=== PATIENT | female | born 1955 | race Caucasian/White ===

== ENCOUNTER 2017-10-23 13:10 | Inpatient (IN) ==
[2017-10-23] MEDS ORDERED: methylPREDNISolone 125 MG/2 ML VIAL IVP ONE (13:33)
[2017-10-23] MEDS ORDERED: Ipratropium/Albuterol Neb 3 ML IH ONE ×4 (13:33→15:53)
[2017-10-23 13:59] LABS: Basophils # 0.1 K/mcL (0.0-0.2); Basophils % 0.4 %; Eosinophils # 0.3 K/mcL (0.0-0.6); Eosinophils % 2.3 %; Hemoglobin 12.8 g/dL (11.5-15.4); Immature Granulocytes % 0.4 % (0-4); Lymphocytes % 27.3 %; Mean Corpuscular HGB Conc 31.2 g/dL (31.6-35.5); Mean Corpuscular Hemoglobin 26.4 pg (28.0-33.3); Mean Corpuscular Volume 84.7 fL (83.0-100.0); Mean Platelet Volume 9.3 fL (9.4-12.4); Monocytes % 5.6 %; Neutrophils # 7.4 K/mcL (1.6-8.9); Platelet Count 279 K/mcL (140-400); Red Blood Count 4.84 M/mcL (3.82-4.97); Red Cell Distribution Width 16.6 % (11.5-14.5)
--- NOTE | 2017-10-23 14:03 | Emergency Department Note ---
Disposition Clinical Impression: Acute exacerbation of chronic obstructive airways disease, Hypercapnia Disposition: Admitted As Inpatient Referrals: Rosangela Rob COOLER SERVICE SUPERVISOR [Primary Care Provider] - Forms: ED Satisfaction Letter Time of Disposition: 16:40 SOB HPI - General Chief Complaint: ED Shortness of Breath/Dyspnea Stated Complaint: short of breath Time Seen by Provider: 10/23/17 13:19 Source: patient, family Mode of arrival: EMS Limitations: no limitations Nursing Notes Reviewed: Yes Vital Signs Reviewed: Yes - History of Present Illness Patient reports shortness of breath over the last several days. She reports Saturday she went to physical therapy where she has been going for orthopedic issues. She thinks that she might of caught something. she went back again and "everybody there was sick" she came home that evening and began to get increasingly congested. Her got congestion. She reports she has had onset of clear rhinorrhea, sore throat, pain across her chest which is rather intense from all of the coughing and she became more short of breath. Coughing has been constant and productive of only white sputum. She reports no fevers or chilling. She takes no prednisone at home currently but just finished a course last Saturday. She is not on oxygen at home but does have breathing treatments and took 2 this morning. Patient reports that she is dyspneic with any attempt at movement or any exertion. Wheezing does not seem to be getting better with the nebulizer Past medical history lung issues COPD but she has never been hospitalized solely for her breathing Pt Subjective Complaint: shortness of breath, cough Onset (ago): day(s) Context: recent illness Severity: moderate Consistency/Duration: constant Improves with: nothing, bronchodilators Worsens with: exertion Known history of: COPD Associated symptoms: Reports: chest pain (Associated with cough), wheezing. Denies: pain with inspiration, fever, sputum production, orthopnea, lower extremity pain, polyuria, parasthesias, palpitations, hemoptysis, nausea/ vomiting Treatment prior to arrival: bronchodilator Cough present: Yes Cough Description: Voluntary, Strong, Wheezy Cough Frequency: Continuous Sputum production: Yes Sputum Amount: Small Sputum Color: White - Related Data Home Medications Medication Instructions Recorded Confirmed Aspirin [Adult Low Dose Aspirin EC] 81 mg PO DAILY 08/24/15 07/15/17 Furosemide [Lasix] 40 mg PO DAILY 08/24/15 07/15/17 Gabapentin [Neurontin] 600 mg PO TID 08/24/15 07/15/17 Levothyroxine [Synthroid] 50 mcg PO DAILY 08/24/15 07/15/17 Potassium Chloride 20 meq PO BID 08/24/15 07/15/17 Trazodone HCl [TraZODone] 100 mg PO HS 08/24/15 07/15/17 glipiZIDE [Glucotrol] 10 mg PO BID 08/24/15 07/15/17 Insulin Glargine,Hum.rec.anlog 50 units SQ HS 03/15/16 07/15/17 [Tounavneet Solostar] Levalbuterol Neb [Xopenex Neb] 0.63 mg IH TID 03/15/16 07/15/17 hydrOXYzine HCl [Hydroxyzine HCl] 25 mg PO TID 03/15/16 07/15/17 Ipratropium [ATROVENT Inhaler] 2 puff IH Q6HR 05/01/16 07/15/17 clonazePAM [Klonopin] 1 mg PO QID 05/01/16 07/15/17 Lisinopril [Zestril] 5 mg PO DAILY 06/13/16 07/15/17 Zolpidem [Ambien] 5 mg PO HS 06/13/16 07/15/17 Albuterol Sulfate [Ventolin Hfa] 108 mcg IH Q4H 07/11/16 07/15/17 Albuterol Sulfate 3 ml IH TID 07/13/17 07/15/17 Ammonium Lactate [Amlactin] 1 each TP BID 07/13/17 07/15/17 Magnesium Oxide [Mgo] 400 mg PO DAILY 07/13/17 07/15/17 Tramadol HCl [Ultram] 50 mg PO Q12HR PRN 07/13/17 07/15/17 Metoprolol Succinate [Toprol Xl] 25 mg PO DAILY 07/15/17 07/15/17 Venlafaxine [Effexor] 75 mg PO BID 07/15/17 07/15/17 Previous Rx's Medication Instructions Recorded Rivaroxaban [Xarelto] 20 mg PO Q24H #30 tablet 06/05/17 Docusate [Colace] 100 mg PO BID #30 capsule 07/17/17 HYDROcodone/Acet 10/325 mg [[place] 1 tab PO Q6HR PRN 7 Days #28 tablet 07/17/17 10-325 mg] Polyethylene Glycol 3350 [MiraLAX] 17 gm PO DAILY #30 powd.pack 07/17/17 levoFLOXacin [Levaquin] 500 mg PO DAILY #12 tablet 07/17/17 predniSONE [PredniSONE] 10 mg PO DAILY #11 tablet 08/19/17 Betamethasone Dipropionate 15 gm TP BID #1 cream..g. 09/23/17 Allergies Allergy/AdvReac Type Severity Reaction Status Date / Time ceftriaxone [From Rocephin] Allergy Rash Verified 07/08/17 19:18 Penicillins Allergy Rash Verified 07/08/17 19:18 pregabalin [From Lyrica] Allergy Hives Verified 07/08/17 19:18 rifampin Allergy Rash Verified 07/08/17 19:18 sulfamethoxazole Allergy Hives Verified 07/08/17 19:18 [From Bactrim] trimethoprim [From Bactrim] Allergy Hives Verified 07/08/17 19:18 doxycycline AdvReac Diarrhea Verified 07/15/17 11:36 Oxycodone [From Percocet] AdvReac Fainting Verified 07/15/17 11:36 All systems ED: reviewed and negative except as stated. Review of Systems: As Per HPI Past Medical History - Past Medical History Medical history: Reports: arthritis, COPD, diabetes, GERD, hypertension, RA, thyroid disease, other Surgical history: Reports: cataract, cholecystectomy, herniorrhaphy, hip replacement, hysterectomy, knee replacement, orthopedic, other, other Psychiatric history: Reports: anxiety, depression SCHOOL PSYCHOLOGY PROFESSOR history: Reports: no SCHOOL PSYCHOLOGY PROFESSOR history - Social History Smoking Status: Current every day smoker Smokeless Tobacco Status: No Alcohol use: Reports: none Drug use: Reports: none Physical Exam Constitutional: Patient is oriented to person, place, and time. Skin color is pink. Appears well hydrated, body habitus normal . Appears acutely dyspneic and tachypnea. She is able to provide her own history but has to stop in between words because she is short of breath Head: Normocephalic and atraumatic. External ear exam normal Nose: Nose normal. Mouth/Throat: Uvula is midline, oropharynx is clear and moist and mucous membranes are normal. Eyes: Conjunctivae nl, extraocular motions and lids are normal. Pupils are equal , round, and reactive to light. Neck: Normal range of motion and phonation normal. Neck supple. Cardiovascular: Normal rate, regular rhythm, normal heart sounds. Pulmonary/Chest: Mild Respiratory distress. Respiratory Effort increased. Wheezing throughout all lung singer. Coarse rhonchi bilaterally.. Abdominal: Soft. Normal appearance and bowel sounds are normal. no tenderness, no masses, no guarding, no rebound Musculoskeletal: Good distal pulses. Soft compartments. Brisk cap refill. Extremities: Normal range of motion.Intact peripheral pulses. No Edema. Extremity skin color nl, no calf tenderness or palpable cords. Neurological: Patient is alert and oriented without evidence of obvious motor deficits Skin: Skin is warm, dry and intact. color is normal, cap refill is quick Psychiatric: Patient has depressed mood and affect. Patient speech is normal and behavior is normal. Thought content normal. - General General appearance: alert Course - Reevaluation(s) Reevaluation #1: Patient has improved only slightly. She states that she feels much better and she wants to go home. After 2 breathing treatments she continued to have wheezing and rhonchi in all lung singer. She did not have a fever. She has no pneumonia. I took her off her oxygen since she is not on any oxygen at home and she dropped 87% on room air. Patient was initially unwilling to stay in the emergency Department any longer or be admitted to the hospital which I suggested because of her elevated CO2 level on the venous blood gas as well as persistent bronchospasm and hypoxia even at rest. Patient was initially unwilling but then after conversation with her she agreed to stay as long as she could stay here at this facility. I had Dr. Resendez or whoever is on-call for his group paged at 16:15. Time: 16:31 Reevaluation #2: Patient continues to have significant bronchospasm as well as hypoxia when I took her off the oxygen she dropped 87% even at rest. She was initially reluctant to be hospitalized and was refusing actually but she is agreeable now she can stay here at this facility. I disc case w/ dr Resendez who reviewed chart and agreed to hospitalize pt and requested that I put in initial orders. Time: 16:38 Reevaluation #3: Patient refused the BiPAP. She is still agreeable to hospitalization. She requested a meal and is comfortable eating and at this point so she is on the nasal cannula oxygen Time: 16:59 Vital Signs Temperature 97.2 F L 10/23/17 13:20 Pulse Rate 88 10/23/17 13:20 Respiratory Rate 24 10/23/17 13:20 Blood Pressure 181/73 10/23/17 13:20 O2 Sat by Pulse Oximetry 82 10/23/17 13:20 Temperature 97.2 F L 10/23/17 13:20 Pulse Rate 80 10/23/17 16:42 Respiratory Rate 18 10/23/17 16:42 Blood Pressure 189/90 10/23/17 16:42 O2 Sat by Pulse Oximetry 93 10/23/17 16:42 Oxygen Delivery Oxygen Delivery Nasal Cannula Shortness of Breath/Dyspnea - Differential Diagnosis Likely: acute exacerbation of chronic obstructive airways disease, congestive heart failure, pneumonia - Medical Records Medical records reviewed: Yes I reviewed the patient's medical records. - Lab Data Lab results reviewed: Yes I reviewed the patient's lab results. Result diagrams: 10/23/17 13:50 10/23/17 13:50 Lab Results 10/23/17 10/23/17 10/23/17 Range/Units 13:50 13:50 13:50 WBC 11.5 H (4.3-11.1) K/mcL RBC 4.84 (3.82-4.97) M/mcL Hgb 12.8 (11.5-15.4) g/dL Hct 41.0 (35.3-44.9) % MCV 84.7 (83.0-100.0) fL MCH 26.4 L (28.0-33.3) pg MCHC 31.2 L (31.6-35.5) g/dL RDW 16.6 H (11.5-14.5) % Plt Count 279 (140-400) K/mcL MPV 9.3 L (9.4-12.4) fL Immature Gran % 0.4 (0-4) % Seg Neutrophils % 64.0 % Lymphocytes % 27.3 % Monocytes % 5.6 % Eosinophils % 2.3 % Basophils % 0.4 % Neutrophils # 7.4 (1.6-8.9) K/mcL Lymphocytes # 3.1 (0.6-4.6) K/mcL Monocytes # 0.6 (0.0-1.3) K/mcL Eosinophils # 0.3 (0.0-0.6) K/mcL Basophils # 0.1 (0.0-0.2) K/mcL VBG pH (7.32-7.42) pH Units VBG pCO2 (41-51) mmHg VBG pO2 (25-50) mmHg VBG HCO3 (21-27) mEq/L VBG Lactic Acid (0.5-2.2) mmol/L Sodium 140 (136-145) mEq/L Potassium 4.0 (3.5-5.1) mEq/L Chloride 97 L (98-107) mEq/L Carbon Dioxide 37 H (23-29) mEq/L BUN 11 (8-23) mg/dL Creatinine 0.99 (0.60-1.20) mg/dL Est GFR ( Amer) > 60 (> 60) Est GFR (Non-Af Amer) 57 L (> 60) BUN/Creatinine Ratio 11 (6-26) Glucose 209 H (70-105) mg/dL Calculated Osmolality 296 (280-300) Lactic Acid 1.6 (0.5-2.2) mmol/L Calcium 9.0 (8.6-10.3) mg/dL Total Bilirubin 0.3 (0.3-1.0) mg/dL Direct Bilirubin 0.1 (0.0-0.2) mg/dL Indirect Bilirubin 0.2 (0.0-1.2) mg/dL AST 20 (13-39) Units/L ALT 19 (7-52) Units/L Alkaline Phosphatase 130 H (34-104) Units/L Troponin I 0.03 (< 0.04) ng/mL B-Natriuretic Peptide (Less than 100) pg/mL Serum Total Protein 7.2 (6.4-8.9) g/dL Albumin 3.6 (3.5-5.7) g/dL Globulin 3.6 H (2.4-3.5) g/dL Albumin/Globulin Ratio 1.0 L (1.1-2.2) 10/23/17 10/23/17 Range/Units 13:50 14:06 WBC (4.3-11.1) K/mcL RBC (3.82-4.97) M/mcL Hgb (11.5-15.4) g/dL Hct (35.3-44.9) % MCV (83.0-100.0) fL MCH (28.0-33.3) pg MCHC (31.6-35.5) g/dL RDW (11.5-14.5) % Plt Count (140-400) K/mcL MPV (9.4-12.4) fL Immature Gran % (0-4) % Seg Neutrophils % % Lymphocytes % % Monocytes % % Eosinophils % % Basophils % % Neutrophils # (1.6-8.9) K/mcL Lymphocytes # (0.6-4.6) K/mcL Monocytes # (0.0-1.3) K/mcL Eosinophils # (0.0-0.6) K/mcL Basophils # (0.0-0.2) K/mcL VBG pH 7.36 (7.32-7.42) pH Units VBG pCO2 69 H (41-51) mmHg VBG pO2 33 (25-50) mmHg VBG HCO3 39 H (21-27) mEq/L VBG Lactic Acid 1.6 (0.5-2.2) mmol/L Sodium (136-145) mEq/L Potassium (3.5-5.1) mEq/L Chloride (98-107) mEq/L Carbon Dioxide (23-29) mEq/L BUN (8-23) mg/dL Creatinine (0.60-1.20) mg/dL Est GFR ( Amer) (> 60) Est GFR (Non-Af Amer) (> 60) BUN/Creatinine Ratio (6-26) Glucose (70-105) mg/dL Calculated Osmolality (280-300) Lactic Acid (0.5-2.2) mmol/L Calcium (8.6-10.3) mg/dL Total Bilirubin (0.3-1.0) mg/dL Direct Bilirubin (0.0-0.2) mg/dL Indirect Bilirubin (0.0-1.2) mg/dL AST (13-39) Units/L ALT (7-52) Units/L Alkaline Phosphatase (34-104) Units/L Troponin I (< 0.04) ng/mL B-Natriuretic Peptide 82 (Less than 100) pg/mL Serum Total Protein (6.4-8.9) g/dL Albumin (3.5-5.7) g/dL Globulin (2.4-3.5) g/dL Albumin/Globulin Ratio (1.1-2.2) - Radiology Data Radiology results reviewed: Yes I reviewed the patient's radiology results. Radiology interpretation portable chest x-ray reveals no evidence of acute after maladies - EKG Data EKG attestation: Yes I reviewed and interpreted this EKG. EKG results narrative: EKG shows sinus rhythm with rate of 90 and no evidence of acute ST-T wave changes. Possible old inferior wall ID.
[2017-10-23 14:08] LABS: Lymphocytes # 3.1 K/mcL (0.6-4.6); Monocytes # 0.6 K/mcL (0.0-1.3)
[2017-10-23 14:11] LABS: VBG HCO3 39 mEq/L (21-27); VBG PCO2 69 mmHg (41-51); VBG PH 7.36 pH Units (7.32-7.42); VBG PO2 33 mmHg (25-50)
[2017-10-23 14:19] LABS: Alanine Aminotransferase 19 Units/L (7-52); Albumin 3.6 g/dL (3.5-5.7); Alkaline Phosphatase 130 Units/L (34-104); Aspartate Amino Transferase 20 Units/L (13-39); BUN/Creatinine Ratio 11 (6-26); Bilirubin,Direct 0.1 mg/dL (0.0-0.2); Bilirubin,Indirect 0.2 mg/dL (0.0-1.2); Bilirubin,Total 0.3 mg/dL (0.3-1.0); Blood Urea Nitrogen 11 mg/dL (8-23); Carbon Dioxide 37 mEq/L (23-29); Chloride 97 mEq/L (98-107); Globulin 3.6 g/dL (2.4-3.5); Glucose 209 mg/dL (70-105); Osmolality,Calculated 296 (280-300); Sodium 140 mEq/L (136-145); Total Protein 7.2 g/dL (6.4-8.9); eGFR For African Americans > 60 (> 60); eGFR For Non-African Americans 57 (> 60)
[2017-10-23 14:21] LABS: Troponin I 0.03 ng/mL (< 0.04)
[2017-10-23] MEDS ORDERED: traMADol 50 MG TABLET PO PRN (17:55)
[2017-10-23] MEDS ORDERED: Acetaminophen 325 MG TABLET PO PRN (17:55)
[2017-10-23] MEDS ORDERED: Naloxone 0.4 MG/ML INJ IVP PRN (17:55)
[2017-10-23 18:26] LABS: INR 1.2; Prothrombin Time 13.2 Seconds (9.4-12.1)
[2017-10-23 18:29] LABS: Activated Partial Thrombo Time 41.3 Seconds (26.0-36.0)
[2017-10-23] MEDS: *HR* Rivaroxaban 10 MG TABLET PO SCH (19:56)
[2017-10-23] MEDS: Ipratropium/Albuterol Neb 3 ML IH PRN ×2 (20:05→23:05)
[2017-10-23] MEDS ORDERED: Insulin DETEMIR 100 UNIT/ML per UNIT SQ ONE (21:00)
[2017-10-23] MEDS ORDERED: Gabapentin 300 MG CAPSULE PO SCH (21:00)
[2017-10-23] MEDS: FluocinoNIDE 0.05% CRM 15 GM TUBE TP SCH (21:25)
[2017-10-23] MEDS: Ammonium Lactate 30 APPL/225 GM BOTTLE TP SCH (21:25)
[2017-10-23] MEDS: methylPREDNISolone 125 MG/2 ML VIAL IVP SCH (23:12)
--- NOTE | 2017-10-23 23:12 | Internal Med History&Physical ---
Date of Encounter: 10/24/17 Time of Encounter: 22:29 Assessment and Plan (1) Acute exacerbation of chronic obstructive pulmonary disease (COPD) Current visit: Yes Status: Acute Acute exacerbation of chronic COPD in a cigarette smoker. She failed outpatient treatment in the ER became hypoxic and required oxygen as well as aggressive aerosol treatments. She will receive IV steroids as well. She is showing improvement. Still requiring oxygen to keep her saturation in the 90s. We talked about tobacco cessation. This patient will be here for 3-4 days until able to safely return home. (2) Diabetes Current visit: Yes Status: Chronic She has chronic diabetes. I anticipate her blood sugars will be elevated due to IV steroids. She may need supplemental insulin coverage. Her last glycohemoglobin is done in July was 7.6%. (3) Peripheral neuropathy Current visit: Yes Status: Chronic Patient has peripheral neuropathy in her right foot, likely from her diabetes. She has an ulcer on her callus on the distal first right metatarsal. She has a bunion with lateral deviation of the second toe overlapping the first. Wound care will be consulted. Qualifiers: Peripheral neuropathy type: polyneuropathy, unspecified Qualified Code(s): G62.9 - Polyneuropathy, unspecified (4) Hypothyroidism Current visit: Yes Status: Chronic Qualifiers: Hypothyroidism type: unspecified Qualified Code(s): E03.9 - Hypothyroidism , unspecified (5) Depression Current visit: Yes Status: Chronic She chronically suffers from depression and anxiety. She is still grieving over the loss of her son. She takes numerous antidepressants and anxiolytic medication in addition to her sleeping pill and her pain pill. We talked about tapering some of those medications downward. I talked to her about the risk of worsening respiratory failure because of the combination of medications. She said she would like to decrease her clonazepam from 3 times a day to twice a day. Qualifiers: Depression Type: unspecified Qualified Code(s): F32.9 - Major depressive disorder, single episode, unspecified (6) Eczema Current visit: Yes Status: Chronic Continue with same treatment with medication from home regarding the rash. Qualifiers: Eczema type: unspecified Qualified Code(s): L30.9 - Dermatitis, unspecified (7) Hypertension Current visit: No Status: Chronic Blood pressure has not been under reasonable control. Labs have been reviewed. We will continue the same medication, I have added an extra NANCY inhibitor tonight.. Qualifiers: Hypertension type: essential hypertension Qualified Code(s): I10 - Essential (primary) hypertension (8) Right knee pain Current visit: No Status: Acute Chronic complaints of right knee pain previous surgeries. She is using ice pack. I do not see anything acute going on. Qualifiers: Chronicity: acute Qualified Code(s): M25.561 - Pain in right knee (9) HTN (hypertension) Current visit: No Status: Chronic Qualifiers: Hypertension type: essential hypertension Qualified Code(s): I10 - Essential (primary) hypertension (10) Callus of foot Current visit: No Status: Acute (11) Sleep disorder Current visit: Yes Status: Acute She feels as if she needs Ambien in addition to her clonazepam and numerous other medications. We will monitor closely. No obvious side effects of been noted today. (12) DVT prophylaxis Current visit: Yes Status: Acute Internal Medicine - H&P: HPI Chief complaint: I could not breathe and I was getting weak Admitted From: Emergency Dept Plans for Post Hospital Care: Home History of present illness: Ms. Juarez is a 61 year old female with known history of COPD, diabetes, hypertension, GERD, hypothyroidism and multiple other medical problems was admitted from the emergency room with exacerbation of COPD. Patient states that she started getting sick 1 week ago when she went to physical therapy and people in the department her sniffling and having stuffy noses. Afterwards she started getting a "head cold" then she had a runny nose and then she said he got into her chest. She tried some OTC medications without relief. Her got ill as well. She said she got progressively worse and "I came to the ER when I did not feel good and I had weakness when I tried to walk". She had had fever as well as chills. She will legs were getting weaker. She has had some sputum but it has been clear. No recent travel. No cardiac chest pain. No GI symptoms. She had been on a taper of prednisone from Dr. Doll for her dermatitis. She was weaned off on Saturday, 3 days ago. She was seen in the emergency room. Chest x-ray was negative for acute changes. She was given breathing treatments but her oxygen still with dropped to 87% range when she tried to walk. She states that she feels 80% better at this point. Interestingly, she previously had been on home oxygen but did not need it and so she no longer has that available in the home. Past Med Surg Social Fam HX - Past Medical History Medical history: arthritis, COPD, diabetes, GERD, hypertension, RA, thyroid disease, other Additional medical history: PICC line placed 5.5 weeks ago for IV antibiotics for septic knee Psychiatric history: anxiety, depression - Past Surgical History Surgical History: cataract, cholecystectomy, herniorrhaphy, hip replacement, hysterectomy, knee replacement, orthopedic, other, other Additional surgical history: 3 knee replacements, partial hyst, 7 elbow surgeries - Social History Smoking Status: Current every day smoker Packs per day: 1/2 ppd Smokeless Tobacco Status: No Alcohol use: none Drug use: none - Family History Brother Family Member Ethnicity: Non- Living Status: Age at : 53 Hx Family Cardiac Disorders: Yes (CO) Sister Family Member Ethnicity: Non- Living Status: Hx Family Endocrine Disorder: Yes (DM) Mother Family Member Ethnicity: Non- Living Status: Age at : 69 Hx Family Cardiac Disorders: Yes (CAD, HF, HD) Hx Family Respiratory Disorders: Yes (COPD) Hx Family Cancer: No Hx Family GI Disorders: No Hx Family Endocrine Disorder: Yes Hx Family Neuromuscular Disorders: No Hx Family Neurologic Disorders: Yes Father Family Member Ethnicity: Non- Living Status: Age at : 72 Hx Family Cardiac Disorders: Yes (Stroke, CAD) Hx Family Respiratory Disorders: No Hx Family Cancer: No Hx Family Endocrine Disorder: Yes (DM) Hx Family Neurologic Disorders: Yes Internal Medicine - H&P: Meds Furosemide [Lasix] 40 mg PO DAILY 08/24/15 [History] Levothyroxine [Synthroid] 50 mcg PO DAILY 08/24/15 [History] Potassium Chloride 20 meq PO BID 08/24/15 [History] Trazodone HCl [TraZODone] 100 mg PO HS 08/24/15 [History] glipiZIDE [Glucotrol] 10 mg PO BID 08/24/15 [History] Insulin Glargine,Hum.rec.anlog [[place] Solostar] 50 units SQ HS 03/15/16 [ History] Levalbuterol Neb [Xopenex Neb] 0.63 mg IH TID 03/15/16 [History] hydrOXYzine HCl [Hydroxyzine HCl] 25 mg PO TID 03/15/16 [History] Ipratropium [ATROVENT Inhaler] 2 puff IH Q6HR 05/01/16 [History] Lisinopril [Zestril] 5 mg PO DAILY 06/13/16 [History] Zolpidem [Ambien] 5 mg PO HS 06/13/16 [History] Albuterol Sulfate [Ventolin Hfa] 108 mcg IH Q4H PRN 07/11/16 [History] Magnesium Oxide [Mgo] 400 mg PO DAILY 07/13/17 [History] Metoprolol Succinate [Toprol Xl] 50 mg PO DAILY 07/15/17 [History] Venlafaxine [Effexor] 225 mg PO DAILY 07/15/17 [History] Betamethasone Dipropionate 15 gm TP BID #1 cream..g. 09/23/17 [Rx] Docusate [Colace] 100 mg PO BID PRN 10/23/17 [History] HYDROcodone/Acet 10/325 mg [[place] 10-325 mg] 1 tab PO Q8HR 10/23/17 [History] Pregabalin [Lyrica] 50 mg PO TID 10/23/17 [History] Rivaroxaban [Xarelto] 10 mg PO 1700 10/23/17 [History] Tiotropium [Spiriva] 18 mcg IH 0700 10/23/17 [History] clonazePAM [Klonopin] 1 mg PO BID 10/23/17 [History] 3 Allergy/AdvReac Type Severity Reaction Status Date / Time ceftriaxone [From Rocephin] Allergy Rash Verified 07/08/17 19:18 Penicillins Allergy Rash Verified 07/08/17 19:18 rifampin Allergy Rash Verified 07/08/17 19:18 sulfamethoxazole Allergy Hives Verified 07/08/17 19:18 [From Bactrim] trimethoprim [From Bactrim] Allergy Hives Verified 07/08/17 19:18 doxycycline AdvReac Diarrhea Verified 07/15/17 11:36 Oxycodone [From Percocet] AdvReac Fainting Verified 07/15/17 11:36 - Constitutional Constitutional: chills, fatigue, fever(s), malaise, no anorexia, no falls, no night sweats - EENT Eyes: no loss of vision, no other visual disturbances Nose, mouth and throat: no mouth lesions, no neck pain, no sinus pain, no sore throat - Cardiovascular Cardiovascular ROS IM: dyspnea, dyspnea on exertion, no chest pain, no irregular heart rhythm, no lightheadedness, no palpitations, no syncope - Respiratory Respiratory: dyspnea, dyspnea on exertion, wheezing, excessive phlegm production , no hemoptysis - Gastrointestinal Gastrointestinal: no constipation, no diarrhea, no heartburn, no hematemesis, no melena - Genitourinary Genitourinary: no dysuria, no urinary incontinence, no vaginal discharge - Musculoskeletal Musculoskeletal ROS IM: arthralgias (She complains of right knee pain and right groin pain and has an ice pack on both) - Integumentary Integumentary IM: rash (She has a history of chronic dermatitis for which he sees a dry charge process attendant) - Neurological Neurological ROS: numbness (She has numbness in the right foot.), no dizziness, no focal weakness, no frequent falls - Psychiatric Psychiatric: depression (Patient has depression, worsened when her son . She feels that she cannot sleep unless she has her Ambien) - Constitutional Vitals: Temp Pulse Resp BP Pulse Ox 97.7 F 86 18 184/81 95 10/23/17 17:44 10/23/17 17:44 10/23/17 17:44 10/23/17 17:44 10/23/17 20:18 General appearance: Present: mild distress, A&O X 3, obese, answers questions appropriately - Head Head exam: Present: atraumatic - Eye Eye exam: Present: EOMI, normal appearance. Absent: nystagmus - ENT ENT exam: Present: mucous membranes moist, normal oropharynx (Except she is edentulous), TM's normal bilaterally - Neck Neck exam general surgery: Absent: lymphadenopathy, tenderness, thyromegaly Additional comments: No carotid bruits - Respiratory Respiratory exam: Present: decreased breath sounds Additional comments: Very diminished breath sounds. Mild inspiratory and 20 wheezes heard. No distress at 60 degrees of head of bed. Oxygen saturation about 90% while on 3- 4 L. No accessory respiratory muscle use - Cardiovascular Cardiovascular exam: Present: RRR, +S1, +S2. Absent: systolic murmur - GI/Abdominal GI/Abdominal exam: Present: soft. Absent: mass, tenderness - Extremities Exam Additional comments: She has an ice pack on her right knee and right groin. She has decreased motion of both knees and complains of pain with range of motion particularly the right side. Right first distal metatarsal has a callus with an ulcer. She has deviation laterally of the great toe which overlaps her second toe. She also has a bunion. Internal Med - H&P Results - Labs CBC & Chem 7: 10/24/17 05:35 10/24/17 05:35 Labs: Labs have been reviewed. White blood cell count is normal. Moderately elevated glucose and a diabetic who is now ill and will be receiving prednisolone - Diagnostic Studies Chest x-ray Additional comments: Chest x-ray shows no acute changes.
[2017-10-23] MEDS ORDERED: Lisinopril 20 MG TABLET PO ONE (23:44)
[2017-10-24] MEDS: Ipratropium/Albuterol Neb 3 ML IH PRN ×2 (04:16→08:00)
[2017-10-24] MEDS: Metoprolol XL (24 HR) Succ 25 MG TAB.ER.24H PO SCH (05:08)
[2017-10-24] MEDS: methylPREDNISolone 125 MG/2 ML VIAL IVP SCH ×2 (05:08→18:05)
[2017-10-24 05:46] LABS: Basophils % 0.1 %; Hemoglobin 13.8 g/dL (11.5-15.4); Immature Granulocytes % 0.4 % (0-4); Lymphocytes # 1.6 K/mcL (0.6-4.6); Lymphocytes % 14.4 %; Mean Corpuscular HGB Conc 31.4 g/dL (31.6-35.5); Mean Corpuscular Hemoglobin 26.3 pg (28.0-33.3); Mean Platelet Volume 9.2 fL (9.4-12.4); Monocytes # 0.1 K/mcL (0.0-1.3); Monocytes % 0.5 %; Neutrophils # 9.2 K/mcL (1.6-8.9); Platelet Count 302 K/mcL (140-400); Red Blood Count 5.24 M/mcL (3.82-4.97); Red Cell Distribution Width 16.3 % (11.5-14.5); Segmented Neutrophils % 84.6 %
[2017-10-24 05:49] LABS: INR 1.3; Prothrombin Time 13.7 Seconds (9.4-12.1)
[2017-10-24 05:51] LABS: Activated Partial Thrombo Time 43.3 Seconds (26.0-36.0)
[2017-10-24] MEDS ORDERED: Ipratropium 1 PUFF INHALER IH SCH (06:00)
[2017-10-24 06:03] LABS: BUN/Creatinine Ratio 16 (6-26); Blood Urea Nitrogen 16 mg/dL (8-23); Calcium 9.9 mg/dL (8.6-10.3); Carbon Dioxide 30 mEq/L (23-29); Chloride 97 mEq/L (98-107); Glucose 327 mg/dL (70-105); Osmolality,Calculated 296 (280-300); Potassium 4.3 mEq/L (3.5-5.1); Sodium 136 mEq/L (136-145); eGFR For African Americans > 60 (> 60); eGFR For Non-African Americans 58 (> 60)
[2017-10-24] MEDS: *HR* GlipiZIDE 5 MG TABLET PO SCH ×2 (07:37→16:21)
[2017-10-24] MEDS: *HR* HYDROcodone/Acet 10/325 mg TABLET PO SCH ×4 (07:37→23:02)
[2017-10-24] MEDS: Pregabalin 50 MG CAPSULE PO SCH ×3 (07:38→20:49)
[2017-10-24] MEDS: Aspirin Enteric Coated 81 MG Tablet PO SCH (07:38)
[2017-10-24] MEDS: Furosemide 40 MG TABLET PO SCH (07:38)
[2017-10-24] MEDS: clonazePAM 1 MG TABLET PO SCH ×2 (07:38→20:49)
[2017-10-24] MEDS: amLODIPine 5 MG TABLET PO SCH (07:38)
[2017-10-24] MEDS: hydrOXYzine pamoate 25 MG CAPSULE PO SCH ×3 (07:38→20:49)
[2017-10-24] MEDS: Magnesium Oxide 400 MG TABLET PO SCH (07:38)
[2017-10-24] MEDS: Tiotropium 18 MCG inhalation IH SCH (07:44)
[2017-10-24] MEDS: Ammonium Lactate 30 APPL/225 GM BOTTLE TP SCH ×2 (07:45→20:49)
[2017-10-24] MEDS: FluocinoNIDE 0.05% CRM 15 GM TUBE TP SCH ×2 (07:46→20:50)
[2017-10-24] MEDS ORDERED: Metoprolol XL (24 HR) Succ 25 MG TAB.ER.24H PO SCH (09:00)
[2017-10-24] MEDS: Levalbuterol Neb 0.63 MG/3 ML IH SCH ×3 (10:04→23:02)
--- NOTE | 2017-10-24 11:27 | Internal Med Progress Note ---
Date of Encounter: 10/24/17 Time of Encounter: 11:27 - Assessment and plan (1) Acute exacerbation of chronic obstructive pulmonary disease (COPD) Current Visit: Yes Status: Acute Assessment and plan: She feels like she is making improvement however she is still requiring 3 L per nasal cannula to maintain saturations in the high 80s low 90s. She desats with minimal movement out of bed. We will try to keep her moving, increase her activity as tolerated. Continue monitoring her oxygen level. (2) Diabetes Current Visit: Yes Status: Chronic Assessment and plan: Sugars have been very elevated to the 300s or more. This is likely due to the steroids intravenously. That is being tapered. Sliding scale insulin has been ordered. Glycohemoglobin has been ordered. (3) Peripheral neuropathy Current Visit: Yes Status: Chronic Assessment and plan: Right foot peripheral neuropathy dosing wound clinic and dressing for protection of the heel ulcer. Qualifiers: Peripheral neuropathy type: polyneuropathy, unspecified Qualified Code(s): G62.9 - Polyneuropathy, unspecified (4) Hypothyroidism Current Visit: Yes Status: Chronic Qualifiers: Hypothyroidism type: unspecified Qualified Code(s): E03.9 - Hypothyroidism , unspecified (5) Depression Current Visit: Yes Status: Chronic Qualifiers: Depression Type: unspecified Qualified Code(s): F32.9 - Major depressive disorder, single episode, unspecified (6) Eczema Current Visit: Yes Status: Chronic Qualifiers: Eczema type: unspecified Qualified Code(s): L30.9 - Dermatitis, unspecified (7) Hypertension Current Visit: No Status: Chronic Assessment and plan: Blood pressures have been elevated today. We gave her medications early, I gave a dose of NANCY inhibitor, we have added amlodipine. Pressures coming down. She has no symptoms with this. We will continue to monitor. Qualifiers: Hypertension type: essential hypertension Qualified Code(s): I10 - Essential (primary) hypertension (8) Right knee pain Current Visit: No Status: Acute Assessment and plan: Seems improved today. She may need some therapy before she goes home. Qualifiers: Chronicity: acute Qualified Code(s): M25.561 - Pain in right knee (9) Callus of foot Current Visit: No Status: Acute Assessment and plan: See previous note under extremities (10) Sleep disorder Current Visit: Yes Status: Acute (11) DVT prophylaxis Current Visit: Yes Status: Acute - Subjective Interval history: Patient states that she is getting better. She has less cough. Less clear to white sputum production. She still becomes very dyspneic and weak when trying to stand to get to the bedside commode. She continues with her oxygen at 3 L to maintain her saturations 90s. When she gets out of bed her saturations drop into the 80s quite quickly. She denies any cardiac type chest pain. No GI or symptoms. Wound clinic evaluated the right heel and put 2 x 2 dressing. This later fell off was replaced by a Band-Aid. She thinks her right knee is doing better and not requiring ice pack today. - Constitutional Vitals: Temp Pulse Resp BP Pulse Ox 97.3 F L 100 18 205/113 90 10/24/17 08:10 10/24/17 08:10 10/24/17 04:00 10/24/17 08:10 10/24/17 08:10 General appearance: Present: mild distress, A&O X 3, obese, answers questions appropriately - Respiratory Respiratory exam: Present: decreased breath sounds (. Diminished breath sounds. She has inspiratory and expiratory wheezes. No crackles. No rhonchi. Respiratory distress.) - Cardiovascular Cardiovascular exam: Present: RRR, +S1, +S2, systolic murmur (1-2/ 6 systolic murmur at left sternal border) - GI/Abdominal GI/Abdominal exam: Present: soft. Absent: tenderness - Extremities Exam Additional comments: Chronic arthritic changes in her knees. However, today while in bed she has what appears to be good range of motion for her age. No redness or edema. No calf tenderness. Right heel has a Band-Aid in place. Internal Medicine: Result - Labs CBC & Chem 7: 10/24/17 05:35 10/24/17 05:35 Labs: Short CBC 10/24/17 Range/Units 05:35 WBC 10.9 (4.3-11.1) K/mcL Hgb 13.8 (11.5-15.4) g/dL Hct 44.0 (35.3-44.9) % Plt Count 302 (140-400) K/mcL Neutrophils # 9.2 H (1.6-8.9) K/mcL BMP 10/24/17 05:35 Sodium 136 Potassium 4.3 Chloride 97 L Carbon Dioxide 30 H BUN 16 Creatinine 0.97 Glucose 327 H Calcium 9.9 labs have been reviewed. Biggest concern is elevated glucose particular after the IV steroids. Will check a glycohemoglobin to check her new baseline. Previous was 7.6% in July. Sliding scale insulin has been ordered. - ABG Interpretation ABG results: PT/INR, D-dimer PT 13.7 Seconds (9.4-12.1) H 10/24/17 05:35 Consult Discharge Plan - Plan Referrals: Rosangela Rob, [facility] [Primary Care Provider] -
[2017-10-24] MEDS ORDERED: Dextrose Gel 15 GM/37.5 ML TUBE PO PRN ×2 (11:51)
[2017-10-24] MEDS ORDERED: *HR* Dextrose 50 % in Water (Syg) 50 ML SYRINGE IVP PRN (11:51)
[2017-10-24] MEDS ORDERED: D5% in Water 1,000 ML IVC PRN (11:51)
[2017-10-24] MEDS ORDERED: Insulin LISPRO 300 UNITS/3 ML VIAL SQ ONE (12:27)
[2017-10-24] MEDS: Insulin LISPRO 300 UNITS/3 ML VIAL SQ SCH ×3 (14:36→20:50)
[2017-10-24] MEDS: *HR* Rivaroxaban 10 MG TABLET PO SCH (16:21)
[2017-10-24] MEDS ORDERED: Insulin LISPRO 300 UNITS/3 ML VIAL SQ SCH (16:30)
[2017-10-24] MEDS ORDERED: *HR* Rivaroxaban 10 MG TABLET PO SCH (17:00)
[2017-10-24 20:02] LABS: Estimated Average Glucose 171 mg/dl; Hemoglobin A1C 7.6 %
[2017-10-24] MEDS: Insulin DETEMIR 100 UNIT/ML X5UNITS SQ SCH (20:47)
[2017-10-24] MEDS: traZODone 50 MG TABLET PO SCH (20:48)
[2017-10-25] MEDS: methylPREDNISolone 125 MG/2 ML VIAL IVP SCH ×2 (04:17→16:27)
--- NOTE | 2017-10-25 07:41 | Internal Med Progress Note ---
Date of Encounter: 10/26/17 Time of Encounter: 07:40 - Assessment and plan (1) Acute exacerbation of chronic obstructive pulmonary disease (COPD) Current Visit: Yes Status: Acute Assessment and plan: Showing improvement but still requiring oxygen even at rest. We will try to increase activity level. Anticipate discharge in next 24-48 hours. Continue steroids and oxygen. (2) Diabetes Current Visit: Yes Status: Chronic Assessment and plan: She has had increased blood sugars likely from IV steroids. They are improving. Her A1c for overall control is 7.6%. Qualifiers: Diabetes mellitus type: type 2 Diabetes mellitus joint terminal attack controller insulin use: unspecified group home insulin use status Diabetes mellitus complication status : with hyperglycemia Qualified Code(s): E11.65 - Type 2 diabetes mellitus with hyperglycemia (3) Peripheral neuropathy Current Visit: Yes Status: Chronic Qualifiers: Peripheral neuropathy type: polyneuropathy, unspecified Qualified Code(s): G62.9 - Polyneuropathy, unspecified (4) Hypothyroidism Current Visit: Yes Status: Chronic Qualifiers: Hypothyroidism type: unspecified Qualified Code(s): E03.9 - Hypothyroidism , unspecified (5) Depression Current Visit: Yes Status: Chronic Qualifiers: Depression Type: unspecified Qualified Code(s): F32.9 - Major depressive disorder, single episode, unspecified (6) Eczema Current Visit: Yes Status: Chronic Qualifiers: Eczema type: unspecified Qualified Code(s): L30.9 - Dermatitis, unspecified (7) Hypertension Current Visit: No Status: Chronic Assessment and plan: Blood pressure is still higher than expected. Not sure why this is occurring in the hospital versus at home. We have increased her NANCY inhibitor and started calcium channel clark. We will continue to monitor. Qualifiers: Hypertension type: essential hypertension Qualified Code(s): I10 - Essential (primary) hypertension (8) Right knee pain Current Visit: No Status: Acute Qualifiers: Chronicity: acute Qualified Code(s): M25.561 - Pain in right knee (9) Callus of foot Current Visit: Yes Status: Acute Assessment and plan: Wound clinic has applied dressing to the right first metatarsal ulcer. (10) Sleep disorder Current Visit: Yes Status: Acute (11) DVT prophylaxis Current Visit: Yes Status: Acute - Subjective Interval history: Patient states that she is getting better. She is able to walk to the bathroom now independently. She still becomes very dyspneic when she does so ago. Is why she had a coughing jag after that and she was congested and tachypneic temporarily. She denies any cardiac type chest pain, no significant sputum production. Through the night her oxygen came off and her saturation was 79%. We will try to qualify her for oxygen at home which she had previously. - Constitutional Vitals: Temp Pulse Resp BP Pulse Ox 97.7 F 90 16 162/105 97 10/25/17 07:26 10/25/17 07:26 10/25/17 07:26 10/25/17 07:26 10/25/17 07:26 General appearance: Present: mild distress, A&O X 3, obese, answers questions appropriately - Respiratory Additional comments: Slightly tachypnea. Harsh cough. Inspiratory and expiratory wheezes scattered. No crackles. - Cardiovascular Cardiovascular exam: Present: RRR, +S1, +S2. Absent: systolic murmur Additional comments: Mildly tachycardic after her coughing spell, occasional ectopic beat - Extremities Exam Extremities exam: Absent: pedal edema Internal Medicine: Result - Labs CBC & Chem 7: 10/24/17 05:35 10/24/17 05:35 - ABG Interpretation ABG results: PT/INR, D-dimer PT 13.7 Seconds (9.4-12.1) H 10/24/17 05:35 Consult Discharge Plan - Plan Referrals: Rosangela Rob [employer] [facility] [Primary Care Provider] -
[2017-10-25] MEDS: Levalbuterol Neb 0.63 MG/3 ML IH SCH ×4 (08:08→22:01)
[2017-10-25] MEDS: Tiotropium 18 MCG inhalation IH SCH (08:08)
[2017-10-25] MEDS: Pregabalin 50 MG CAPSULE PO SCH ×3 (08:09→22:00)
[2017-10-25] MEDS: *HR* GlipiZIDE 5 MG TABLET PO SCH ×2 (08:09→16:27)
[2017-10-25] MEDS: Furosemide 40 MG TABLET PO SCH (08:09)
[2017-10-25] MEDS: hydrOXYzine pamoate 25 MG CAPSULE PO SCH ×3 (08:10→22:00)
[2017-10-25] MEDS: Magnesium Oxide 400 MG TABLET PO SCH (08:10)
[2017-10-25] MEDS: clonazePAM 1 MG TABLET PO SCH ×2 (08:10→22:00)
[2017-10-25] MEDS: Aspirin Enteric Coated 81 MG Tablet PO SCH (08:10)
[2017-10-25] MEDS: *HR* HYDROcodone/Acet 10/325 mg TABLET PO SCH ×2 (08:10→16:12)
[2017-10-25] MEDS: Metoprolol XL (24 HR) Succ 25 MG TAB.ER.24H PO SCH (08:10)
[2017-10-25] MEDS: Insulin LISPRO 300 UNITS/3 ML VIAL SQ SCH ×4 (08:13→22:00)
[2017-10-25] MEDS: amLODIPine 5 MG TABLET PO SCH ×2 (08:20→11:37)
[2017-10-25] MEDS: FluocinoNIDE 0.05% CRM 15 GM TUBE TP SCH ×2 (08:22→22:00)
[2017-10-25] MEDS: Ammonium Lactate 30 APPL/225 GM BOTTLE TP SCH ×2 (08:22→21:59)
[2017-10-25] MEDS: *HR* Rivaroxaban 10 MG TABLET PO SCH (16:27)
[2017-10-25] MEDS: Insulin DETEMIR 100 UNIT/ML X5UNITS SQ SCH (22:00)
[2017-10-25] MEDS: traZODone 50 MG TABLET PO SCH (22:00)
[2017-10-26] MEDS: *HR* HYDROcodone/Acet 10/325 mg TABLET PO SCH ×2 (00:05→08:19)
[2017-10-26] MEDS: Levalbuterol Neb 0.63 MG/3 ML IH SCH ×4 (01:10→11:42)
[2017-10-26] MEDS: methylPREDNISolone 125 MG/2 ML VIAL IVP SCH (05:15)
[2017-10-26] MEDS: Tiotropium 18 MCG inhalation IH SCH (07:41)
[2017-10-26] MEDS: Insulin LISPRO 300 UNITS/3 ML VIAL SQ SCH ×2 (08:17→11:48)
[2017-10-26] MEDS: Furosemide 40 MG TABLET PO SCH (08:18)
[2017-10-26] MEDS: Aspirin Enteric Coated 81 MG Tablet PO SCH (08:18)
[2017-10-26] MEDS: Pregabalin 50 MG CAPSULE PO SCH ×2 (08:18→15:37)
[2017-10-26] MEDS: Magnesium Oxide 400 MG TABLET PO SCH (08:18)
[2017-10-26] MEDS: amLODIPine 5 MG TABLET PO SCH (08:18)
[2017-10-26] MEDS: hydrOXYzine pamoate 25 MG CAPSULE PO SCH ×2 (08:19→15:37)
[2017-10-26] MEDS: clonazePAM 1 MG TABLET PO SCH (08:19)
[2017-10-26] MEDS: *HR* GlipiZIDE 5 MG TABLET PO SCH (08:19)
[2017-10-26] MEDS: Metoprolol XL (24 HR) Succ 25 MG TAB.ER.24H PO SCH (08:19)
[2017-10-26] MEDS: Ammonium Lactate 30 APPL/225 GM BOTTLE TP SCH (08:20)
[2017-10-26] MEDS: FluocinoNIDE 0.05% CRM 15 GM TUBE TP SCH (11:21)
--- NOTE | 2017-10-26 13:39 | Discharge Summary ---
- NOTES TO OUTPATIENT PROVIDER Notes to Outpatient Provider: #1. Taper of prednisone initiated at discharge. #2. Hypertensive in the hospital and increased lisinopril and started amlodipine. #3. Blood sugars were elevated due to IV steroids. Improving but still elevated. Glycohemoglobin 7.6%. #4. Wound clinic is working on right foot callus with ulcer Date of Encounter: 10/26/17 Time of Encounter: 13:37 - Discharge Diagnosis (1) Acute exacerbation of chronic obstructive pulmonary disease (COPD) Priority: Primary Status: Acute Comments: Patient was admitted with exacerbation of COPD and hypoxia into the 70s to 80s at home despite use of inhalers and nebulizer. During this hospitalization she has required oxygen all of the time, IV steroids, and rest. She had her nebulizer of levalbuterol about every 4 hours. Oxygen saturation at rest in bed this morning was 77%. Ambulation it drops to the 70s and 80s. With oxygen in place at 2-3 L it stays in the low to mid 90s. Ana Paula is delivering oxygen concentrator for home and portable use as well. She is showing improvement, she is able to ambulate in the hallways, she is able to get to the bathroom and sink etc. She will have a taper of prednisone prescribed. She will be seen in the office in 4 days. (2) Diabetes Priority: Secondary Status: Chronic Comments: She has a chronic history of diabetes but her sugars were elevated to the 200s to 300s while in the hospital due to IV steroids. She has sliding scale in addition to her usual medical regimen. It is showing improvement by discharge. She will be sent home on a taper of prednisone and anticipate elevated sugars for a while. Her glycohemoglobin was obtained and was 7.6%. (3) Peripheral neuropathy Priority: Secondary Status: Chronic Comments: She has peripheral neuropathy particularly in the right foot. She has a callus with an ulcer as below. This is not acute, they have been working on this for the past couple of years Qualifiers: Peripheral neuropathy type: polyneuropathy, unspecified Qualified Code(s): G62.9 - Polyneuropathy, unspecified (4) Hypothyroidism Priority: Secondary Status: Chronic Comments: Her usual Synthroid dose was continued during the hospital stay. Qualifiers: Hypothyroidism type: unspecified Qualified Code(s): E03.9 - Hypothyroidism , unspecified (5) Depression Priority: Secondary Status: Chronic Comments: She takes multiple medications for depression and anxiety. We were able to taper her clonazepam to twice a day. We talked about the risks involved in other sedative medication such as her trazodone, venlafaxine, hydroxyzine, clonazepam in combination particularly with her Clarion use and history of COPD. Besides tapered to clonazepam downward from 3 times a day to twice a day and the other medications were left the same for her insistence. She has had no side effects noted. Qualifiers: Depression Type: unspecified Qualified Code(s): F32.9 - Major depressive disorder, single episode, unspecified (6) Eczema Priority: Secondary Status: Chronic Comments: She will continue with her multiple creams as well as injection for the applications tester. She has had no exacerbation or findings during this hospital stay. Qualifiers: Eczema type: unspecified Qualified Code(s): L30.9 - Dermatitis, unspecified (7) Hypertension Priority: Secondary Status: Chronic Comments: Her blood pressure elevated during this hospital stay. We increased her NANCY inhibitor from 5 mg to equal 10 mg daily. We added amlodipine and increase it up to 10 mg daily. This is in addition to her Lasix that we continued. She has had no symptoms with this. She claims that she is nervous. Usually her blood pressures are better. They are to monitor this at home. Qualifiers: Hypertension type: essential hypertension Qualified Code(s): I10 - Essential (primary) hypertension (8) Right knee pain Priority: Secondary Status: Acute Comments: Her knee pain improved to the point where she was able to ambulate. There is no acute changes noted. Qualifiers: Chronicity: acute Qualified Code(s): M25.561 - Pain in right knee (9) Callus of foot Priority: Secondary Status: Acute Comments: She is a callus with an ulcer on the right foot distal first metatarsal. She is followed by wound clinic. She is to have dressing changes 3 times per week. They will see wound care on Saturday. Her has been working on dressing changes for the past 2 years. He has lots of supplies at home. (10) Sleep disorder Priority: Secondary Status: Acute Comments: She refuses to change any of her medication at nighttime for sleep. (11) DVT prophylaxis Priority: Secondary Status: Acute Comments: She received her usual Xarelto dose for DVT prophylaxis. Hospital course: Ms. Juarez is a 61 year old female with chronic history of COPD, diabetes, hypertension and multiple other medical problems she was admitted with exacerbation of COPD. Please see the above diagnoses. She will follow-up in the office in 4 days. Time spent discussing smoking cessation with patient: 3 to 10 minutes (I recommended that she decrease her tobacco use.) - Time Spent with Patient Total time spent providing and/or coordinating discharge services: - Discharge Medications Prescriptions: amLODIPine [Norvasc] 10 mg PO DAILY #30 tablet predniSONE [PredniSONE] 10 mg PO DAILY #63 tablet Home Medications: Furosemide [Lasix] 40 mg PO DAILY 08/24/15 [History] Potassium Chloride 20 meq PO BID 08/24/15 [History] Trazodone HCl [TraZODone] 100 mg PO HS 08/24/15 [History] glipiZIDE [Glucotrol] 10 mg PO BID 08/24/15 [History] Insulin Glargine,Hum.rec.anlog [Toujeo Solostar] 50 units SQ HS 03/15/16 [ History] hydrOXYzine HCl [Hydroxyzine HCl] 25 mg PO TID 03/15/16 [History] Ipratropium [ATROVENT Inhaler] 2 puff IH Q6HR 05/01/16 [History] Zolpidem [Ambien] 5 mg PO HS 06/13/16 [History] Albuterol Sulfate [Ventolin Hfa] 108 mcg IH Q4H PRN 07/11/16 [History] Magnesium Oxide [Mgo] 400 mg PO DAILY 07/13/17 [History] Metoprolol Succinate [Toprol Xl] 50 mg PO DAILY 07/15/17 [History] Venlafaxine [Effexor] 225 mg PO DAILY 07/15/17 [History] Betamethasone Dipropionate 15 gm TP BID #1 cream..g. 09/23/17 [Rx] Docusate [Colace] 100 mg PO BID PRN 10/23/17 [History] HYDROcodone/Acet 10/325 mg [Clarion 10-325 mg] 1 tab PO Q8HR 10/23/17 [History] Pregabalin [Lyrica] 50 mg PO TID 10/23/17 [History] Rivaroxaban [Xarelto] 10 mg PO 1700 10/23/17 [History] Tiotropium [Spiriva] 18 mcg IH 0700 10/23/17 [History] clonazePAM [Klonopin] 1 mg PO BID 10/23/17 [History] Acetaminophen [Tylenol] 650 mg PO Q6HR PRN tablet 10/26/17 [Rx] Levalbuterol Neb [Xopenex Neb] 0.63 mg IH Q4-6H PRN #0 10/26/17 [Rx] Levothyroxine [Synthroid] 50 mcg PO 0630 tablet 10/26/17 [Rx] Lisinopril [Zestril] 10 mg PO DAILY #0 10/26/17 [Rx] amLODIPine [Norvasc] 10 mg PO DAILY #30 tablet 10/26/17 [Rx] predniSONE [PredniSONE] 10 mg PO DAILY #63 tablet 10/26/17 [Rx] Allergies/Adverse Reactions: 3 Allergy/AdvReac Type Severity Reaction Status Date / Time ceftriaxone [From Rocephin] Allergy Rash Verified 07/08/17 19:18 Penicillins Allergy Rash Verified 07/08/17 19:18 rifampin Allergy Rash Verified 07/08/17 19:18 sulfamethoxazole Allergy Hives Verified 07/08/17 19:18 [From Bactrim] trimethoprim [From Bactrim] Allergy Hives Verified 07/08/17 19:18 doxycycline AdvReac Diarrhea Verified 07/15/17 11:36 Oxycodone [From Percocet] AdvReac Fainting Verified 07/15/17 11:36 Date of admission: 10/23/17 23:58 Primary care physician: Rosangela Rob CNP Discharging clinician: Barry Resendez Anticipated date of discharge: 10/26/17 - Constitutional Vitals: Temp Pulse Resp BP Pulse Ox 97.7 F 82 15 185/80 91 10/26/17 07:33 10/26/17 07:33 10/26/17 07:33 10/26/17 07:33 10/26/17 07:33 General appearance: Present: A&O X 3, obese, answers questions appropriately - Respiratory Additional comments: Diminished breath sounds throughout. Scattered occasional expiratory wheezes but improved. No respiratory distress at rest. - Cardiovascular Cardiovascular exam: Present: RRR, +S1, +S2 - GI/Abdominal GI/Abdominal exam: Present: soft. Absent: tenderness - Extremities Exam Extremities exam: Absent: calf tenderness, mottling, pedal edema, tenderness Additional comments: Right great toe at the distal MP joint is dressed and I did not evaluate further. - Patient Status Disposition: Home, Self-Care Condition: Good Functional capacity at discharge: independent ambulation Overall status at discharge: patient is progressing back to baseline - Discharge Instructions Follow Up With: Barry Resendez MD [Partnered Physician] - 10/30/17 12:15 pm - Diet and Activity Activity: increase activity as tolerated, wear oxygen at all times
[2017-10-26 13:41] VITALS: BP 165/83
--- NOTE | 2017-10-27 20:23 | Electrocardiograph Report ---
[place] [id number] Test Date: 2017-10-23 Pat Name: Esthela Juarez Department: 2000 Room: 117 Gender: F Position Classification Specialist: : [id number] Requested By: [id number] Order Number: [id number] Reading MD: Rommel Irby Measurements Intervals [place] Rate: 90 P: 69 WY: 136 QRS: -21 QRSD: 93 T: 60 QT: 390 QTc: 438 Interpretive Statements SINUS RHYTHM BORDERLINE LEFT AXIS DEVIATION Electronically Signed On 10-27-2017 20:21:20 EDT by Rommel Irby
== END 2017-10-26 16:05 | disposition home or self-care (01) | DRG 140 ==
LOC: EMEROOGRE 13:10 → INPGRE 13:10
PROVIDERS: ADMIT Family Medicine; ATTEND Family Medicine

== ENCOUNTER 2020-04-24 16:59 | Inpatient (IN) ==
[2020-04-24 17:43] LABS: ABG Base Excess 9 mEq/L (-2 to 3); ABG HCO3 41 mEq/L (21-27); ABG Oxygen Saturation 92 % (95-98); ABG PCO2 98 mmHg (35-45); ABG PH 7.23 pH Units (7.32-7.45); ABG PO2 82 mmHg (85-104); ABG TCO2 44 mEq/L (20-26)
[2020-04-24 17:51] LABS: Basophils # 0.1 K/mcL (0.0-0.2); Basophils % 0.4 %; Eosinophils # 0.4 K/mcL (0.0-0.6); Hematocrit 41.1 % (35.3-44.9); Hemoglobin 11.9 g/dL (11.5-15.4); Immature Granulocytes % 0.5 % (0-4); Lymphocytes # 1.7 K/mcL (0.6-4.6); Lymphocytes % 14.5 %; Mean Corpuscular Hemoglobin 27.5 pg (28.0-33.3); Mean Corpuscular Volume 95.1 fL (83.0-100.0); Mean Platelet Volume 10.4 fL (9.4-12.4); Monocytes # 0.8 K/mcL (0.0-1.3); Monocytes % 6.8 %; Neutrophils # 8.7 K/mcL (1.6-8.9); Platelet Count 252 K/mcL (140-400); Red Blood Count 4.32 M/mcL (3.82-4.97); Red Cell Distribution Width 14.4 % (11.5-14.5); Segmented Neutrophils % 74.8 %; White Blood Count 11.6 K/mcL (4.3-11.1)
[2020-04-24 17:59] LABS: INR 1.2; Prothrombin Time 13.2 Seconds (9.4-12.1)
[2020-04-24 18:01] LABS: Activated Partial Thrombo Time 40.8 Seconds (26.0-36.0)
[2020-04-24 18:05] LABS: Heparin anti-factor XA UFH 0.2 IU/mL (0.30-0.70)
[2020-04-24 18:10] LABS: Bilirubin,Urine Negative (Negative); Blood,Urine Negative (Negative); Clarity,Urine Clear (Clear); Color,Urine Yellow (Yellow); Glucose,Urine (UA) Normal (Normal); Ketones,Urine Negative (Negative); Leukocyte Esterase,Urine Negative (Negative); Nitrite,Urine Negative (Negative); PH,Urine 8.5 pH Units (5.0-8.0); Protein,Urine Negative (Neg-Trace); Urobilinogen,Urine Normal (Normal)
[2020-04-24 18:11] LABS: BUN/Creatinine Ratio 8 (6-26); Blood Urea Nitrogen 6 mg/dL (8-23); Calcium 9.3 mg/dL (8.6-10.3); Carbon Dioxide 45 mEq/L (23-29); Chloride 96 mEq/L (98-107); Glucose 112 mg/dL (70-105); Osmolality,Calculated 296 (280-300); Potassium 4.5 mEq/L (3.5-5.1); Sodium 144 mEq/L (136-145); eGFR For African Americans > 60 (> 60); eGFR For Non-African Americans > 60 (> 60)
[2020-04-24] MEDS ORDERED: Isovue-370 500 ML BOTTLE IVP ONE (18:13)
[2020-04-24] MEDS ORDERED: levoFLOXacin 750 MG/150 ML 750 MG/150 ML BAG IVPB STA (18:14)
[2020-04-24] MEDS ORDERED: Azithromycin 500 MG in 0.9 % Sodium Chloride 250 ML IVPB ONE (18:14)
[2020-04-24 18:21] LABS: Troponin I < 0.03 ng/mL (< 0.04)
[2020-04-24 18:44] LABS: ABG Base Excess 11 mEq/L (-2 to 3); ABG HCO3 41 mEq/L (21-27); ABG Oxygen Saturation 99 % (95-98); ABG PCO2 85 mmHg (35-45); ABG PH 7.29 pH Units (7.32-7.45); ABG PO2 152 mmHg (85-104); ABG TCO2 43 mEq/L (20-26)
[2020-04-24] MEDS ORDERED: methylPREDNISolone 125 MG/2 ML VIAL IVP ONE (20:05)
[2020-04-24 20:22] LABS: ABG Base Excess 9 mEq/L (-2 to 3); ABG HCO3 38 mEq/L (21-27); ABG Oxygen Saturation 93 % (95-98); ABG PCO2 80 mmHg (35-45); ABG PH 7.29 pH Units (7.32-7.45); ABG PO2 80 mmHg (85-104); ABG TCO2 41 mEq/L (20-26)
[2020-04-24] MEDS ORDERED: Naloxone 0.4 MG/ML INJ IVP PRN (20:55)
[2020-04-24] MEDS ORDERED: *HR* OxyCODONE/APAP 7.5/325 TABLET PO PRN (20:55)
[2020-04-24] MEDS ORDERED: Insulin DETEMIR 100 UNIT/ML per UNIT SQ ONE (21:00)
[2020-04-24] MEDS ORDERED: INSULIN ASPART SQ SCH (21:00)
[2020-04-24] MEDS ORDERED: D5% in Water 1,000 ML IVC PRN (21:05)
[2020-04-24] MEDS ORDERED: *HR* Dextrose 50 % in Water (Vial) 50 ML VIAL IVP PRN (21:05)
[2020-04-24] MEDS ORDERED: Dextrose Gel 15 GM/37.5 ML TUBE PO PRN ×2 (21:05)
[2020-04-24] MEDS: Insulin LISPRO 300 UNITS/3 ML VIAL SQ SCH (22:03)
[2020-04-24] MEDS: Pregabalin 50 MG CAPSULE PO SCH (22:11)
[2020-04-24] MEDS: traZODone 50 MG TABLET PO SCH (22:11)
[2020-04-24] MEDS: Ipratropium/Albuterol Neb 3 ML IH SCH (22:59)
[2020-04-24 23:22] LABS: ABG Base Excess 8 mEq/L (-2 to 3); ABG HCO3 37 mEq/L (21-27); ABG Oxygen Saturation 96 % (95-98); ABG PCO2 77 mmHg (35-45); ABG PH 7.29 pH Units (7.32-7.45); ABG PO2 95 mmHg (85-104); ABG TCO2 40 mEq/L (20-26)
[2020-04-25] MEDS: Ipratropium/Albuterol Neb 3 ML IH SCH ×4 (04:18→22:03)
[2020-04-25 05:39] LABS: Basophils % 0.2 %; Eosinophils % 0.1 %; Hematocrit 38.8 % (35.3-44.9); Hemoglobin 11.6 g/dL (11.5-15.4); Immature Granulocytes % 0.5 % (0-4); Lymphocytes # 0.7 K/mcL (0.6-4.6); Lymphocytes % 6.4 %; Mean Corpuscular HGB Conc 29.9 g/dL (31.6-35.5); Mean Corpuscular Hemoglobin 27.2 pg (28.0-33.3); Mean Corpuscular Volume 90.9 fL (83.0-100.0); Mean Platelet Volume 10.6 fL (9.4-12.4); Monocytes % 0.4 %; Platelet Count 225 K/mcL (140-400); Red Blood Count 4.27 M/mcL (3.82-4.97); Segmented Neutrophils % 92.4 %; White Blood Count 10.8 K/mcL (4.3-11.1)
[2020-04-25 05:56] LABS: BUN/Creatinine Ratio 13 (6-26); Blood Urea Nitrogen 7 mg/dL (8-23); Calcium 9.3 mg/dL (8.6-10.3); Carbon Dioxide 34 mEq/L (23-29); Chloride 98 mEq/L (98-107); Glucose 204 mg/dL (70-105); Magnesium 1.7 mg/dL (1.6-2.6); Osmolality,Calculated 288 (280-300); Phosphorous 1.6 mg/dL (2.7-4.5); Potassium 4.1 mEq/L (3.5-5.1); Sodium 137 mEq/L (136-145); eGFR For African Americans > 60 (> 60); eGFR For Non-African Americans > 60 (> 60)
[2020-04-25 06:42] LABS: VBG HCO3 36 mEq/L (21-27); VBG PCO2 67 mmHg (41-51); VBG PH 7.34 pH Units (7.32-7.42); VBG PO2 75 mmHg (25-50)
[2020-04-25] MEDS: lisinopriL 10 MG TABLET PO SCH (07:58)
[2020-04-25] MEDS: Furosemide 40 MG TABLET PO SCH (07:58)
[2020-04-25] MEDS: *HR* Rivaroxaban 10 MG TABLET PO SCH (07:58)
[2020-04-25] MEDS: Pregabalin 50 MG CAPSULE PO SCH ×3 (07:58→21:05)
[2020-04-25] MEDS: Magnesium Oxide 400 MG TABLET PO SCH (07:58)
[2020-04-25] MEDS: Metoprolol XL (24 HR) Succ 50 MG TAB.ER.24H PO SCH (07:59)
[2020-04-25] MEDS: amLODIPine 5 MG TABLET PO SCH (07:59)
[2020-04-25] MEDS: Insulin LISPRO 300 UNITS/3 ML VIAL SQ SCH ×3 (07:59→16:30)
[2020-04-25] MEDS: (Tiotropium Br/Olodaterol Hcl [Stiolto Respimat Inhaler]) IH SCH (07:59)
[2020-04-25] MEDS: Nicotine 21 MG PATCH.TD24 TD SCH (07:59)
[2020-04-25] MEDS: predniSONE 20 MG TABLET PO SCH (07:59)
[2020-04-25 09:33] LABS: Adenovirus Not Detected (Not Detect); Bordetella Pertussis Not Detected (Not Detect); Chlamydophila pneumoniae Not Detected (Not Detect); Coronavirus 229E Not Detected (Not Detect); Coronavirus HKU1 Not Detected (Not Detect); Coronavirus NL63 Not Detected (Not Detect); Coronavirus OC43 Not Detected (Not Detect); Human Metapneumovirus Not Detected (Not Detect); Human Rhinovirus/Enterovirus Not Detected (Not Detect); Influenza A Subtype 2009 H1 Not Detected (Not Detect); Influenza B Not Detected (Not Detect); Mycoplasma pneumoniae Not Detected (Not Detect); Parainfluenza Virus 1 Not Detected (Not Detect); Parainfluenza Virus 2 Not Detected (Not Detect); Parainfluenza Virus 3 Not Detected (Not Detect); Parainfluenza Virus 4 Not Detected (Not Detect); Respiratory Syncytial Virus Not Detected (Not Detect); SARS-CoV-2 Not Detected (Not Detect)
[2020-04-25 16:47] LABS: ABG Base Excess 4 mEq/L (-2 to 3); ABG HCO3 30 mEq/L (21-27); ABG Oxygen Saturation 95 % (95-98); ABG PCO2 45 mmHg (35-45); ABG PH 7.42 pH Units (7.32-7.45); ABG PO2 75 mmHg (85-104); ABG TCO2 31 mEq/L (20-26)
[2020-04-25] MEDS ORDERED: levoFLOXacin 500 MG/100 ML 500 MG/100 ML BAG IVPB SCH (18:00)
[2020-04-25] MEDS ORDERED: Venlafaxine XR (24 HR) 150 MG CAP.ER.24H PO SCH (18:00)
[2020-04-25] MEDS ORDERED: Venlafaxine XR (24 HR) 75 MG CAP.ER.24H PO SCH (18:00)
[2020-04-25] MEDS ORDERED: Insulin DETEMIR 100 UNIT/ML X5UNITS SQ SCH (21:00)
[2020-04-25] MEDS: traZODone 50 MG TABLET PO SCH (21:06)
[2020-04-26] MEDS: Ipratropium/Albuterol Neb 3 ML IH SCH ×2 (04:20→11:41)
[2020-04-26] MEDS: lisinopriL 10 MG TABLET PO SCH (09:02)
[2020-04-26] MEDS: amLODIPine 5 MG TABLET PO SCH (09:02)
[2020-04-26] MEDS: predniSONE 20 MG TABLET PO SCH (09:02)
[2020-04-26] MEDS: Magnesium Oxide 400 MG TABLET PO SCH (09:02)
[2020-04-26] MEDS: Pregabalin 50 MG CAPSULE PO SCH (09:02)
[2020-04-26] MEDS: Furosemide 40 MG TABLET PO SCH (09:02)
[2020-04-26] MEDS: *HR* Rivaroxaban 10 MG TABLET PO SCH (09:03)
[2020-04-26] MEDS: Nicotine 21 MG PATCH.TD24 TD SCH (09:03)
[2020-04-26] MEDS: Metoprolol XL (24 HR) Succ 50 MG TAB.ER.24H PO SCH (09:03)
[2020-04-26] MEDS: (Tiotropium Br/Olodaterol Hcl [Stiolto Respimat Inhaler]) IH SCH (09:04)
[2020-04-26] MEDS: Insulin LISPRO 300 UNITS/3 ML VIAL SQ SCH (09:08)
[2020-04-26 11:52] VITALS: BP 152/69
== END 2020-04-26 12:34 | disposition home or self-care (01) | DRG 189 ==
LOC: EMEROOGRE 16:59 → INPGRE 16:59
PROVIDERS: ADMIT Family Medicine; ATTEND Family Medicine